=== PATIENT | female | born 1995 | race American Indian/Alaskan Native ===

== ENCOUNTER 2019-08-21 21:52 | Emergency (ER) | payer SELFPAY ==
[2019-08-21] MEDS ORDERED: FLUORESCEIN 1 MG STRIP OP ONE ×2 (22:41→22:49)
[2019-08-21] MEDS ORDERED: TETRACAINE 0.5% OPHTH SOLN 4ML OU STA (22:49)
--- NOTE | 2019-08-21 22:51 | Emergency Department Report ---
ED General Adult HPI - General Chief complaint: Eye Problems Stated complaint: LOST OF VISION, POSS EYE INFECTION Time Seen by Provider: 08/21/19 22:30 Source: patient, family, RN notes reviewed, old records reviewed Mode of arrival: Ambulatory Limitations: Other (patient very anxious. Patient initially states that she cannot see.) - History of Present Illness Initial comments: During the entire history and physical, I am community engagement specialist and escorted by nurse Michelle Mercado This is a 23-year-old male to female transgender patient, previously evaluated by myself in 2015, reports history of anxiety and Crohn's disease. Patient reports that she fell asleep with her contact lenses in her eyes, and has been having aching burning bilateral eye pain. She reports that about 1 hour prior to presentation, she was not able to see out of her bilateral eyes. Her pain was improved with fluorescein, and her vision returned while in the emergency room. She may no complaint of additional complaints. The patient indicates that she did not fall. -: Gradual Location: eyes Quality: aching Consistency: constant Improves with: medication - Related Data Home Medications Medication Instructions Recorded Confirmed Last Taken Mesalamine [Asacol] 500 mg PO DAILY 11/19/13 03/19/14 03/19/14 09:00 Previous Rx's Medication Instructions Recorded Last Taken Type Dicyclomine [Bentyl] 10 mg PO QID PRN #20 capsule 04/03/15 Unknown Rx Ondansetron [Zofran Odt] 4 mg PO Q6H PRN #20 tab.rapdis 04/03/15 Unknown Rx predniSONE [Deltasone] 40 mg PO QDAY 7 Days tab 04/03/15 Unknown Rx Mineral Oil/Petrolatum,White 1 applic OP Q1HR PRN #1 oint...g. 08/21/19 Unknown Rx [Refresh Lacri-Lube Ointment] oxyCODONE /ACETAMINOPHEN [Percocet 1 tab PO Q4HR PRN #10 tab 08/21/19 Unknown Rx 5/325] Allergies Allergy/AdvReac Type Severity Reaction Status Date / Time No Known Allergies Allergy Verified 04/03/15 15:16 ED Review of Systems ROS: Stated complaint: LOST OF VISION, POSS EYE INFECTION Other details as noted in HPI Eyes: eye pain, eye discharge, vision change Psychiatric: anxiety ED Past Medical Hx - Past Medical History Previous Medical History?: Yes Hx Psychiatric Treatment: Yes (ANXIETY) Hx HIV: Yes Additional medical history: crohnS - Surgical History Past Surgical History?: No - Social History Smoking Status: Former Smoker Substance Use Type: None - Medications Home Medications: Home Medications Medication Instructions Recorded Confirmed Last Taken Type Mesalamine [Asacol] 500 mg PO DAILY 11/19/13 03/19/14 03/19/14 09:00 History Dicyclomine [Bentyl] 10 mg PO QID PRN #20 capsule 04/03/15 Unknown Rx Ondansetron [Zofran Odt] 4 mg PO Q6H PRN #20 tab.rapdis 04/03/15 Unknown Rx predniSONE [Deltasone] 40 mg PO QDAY 7 Days tab 04/03/15 Unknown Rx Mineral Oil/Petrolatum,White 1 applic OP Q1HR PRN #1 oint...g. 08/21/19 Unknown Rx [Refresh Lacri-Lube Ointment] oxyCODONE /ACETAMINOPHEN [Percocet 1 tab PO Q4HR PRN #10 tab 08/21/19 Unknown Rx 5/325] ED Physical Exam - General Limitations: Other (the patient is very anxious. During the entire history and physical, I am community engagement specialist and escorted by nurse Michelle Mercado) General appearance: alert, anxious - Head Head exam: Present: atraumatic, normocephalic - Eye Eye exam: Present: normal appearance, PERRL, EOMI, other (visual acuity intact to finger counting, color perception, reading at a close distance. Extraocular movements are intact bilaterally. There is negative fluorescein uptake. There is negative Lorri sign.). Absent: nystagmus - ENT ENT exam: Present: normal exam, normal orophraynx, mucous membranes moist, normal external ear exam - Neck Neck exam: Present: normal inspection, full ROM. Absent: tenderness, meningismus - Respiratory Respiratory exam: Present: normal lung sounds bilaterally. Absent: respiratory distress - Cardiovascular Cardiovascular Exam: Present: regular rate, normal rhythm, normal heart sounds. Absent: bradycardia, tachycardia, irregular rhythm, systolic murmur, diastolic murmur, rubs, gallop - GI/Abdominal GI/Abdominal exam: Present: soft. Absent: distended, tenderness, guarding, rebound, rigid, pulsatile mass - Extremities Exam Extremities exam: Present: normal inspection, full ROM, other (2+ pulses in the bilateral upper extremities. There is no long bony tenderness. Muscular saravanan rtments are soft.). Absent: pedal edema, calf tenderness - Back Exam Back exam: Present: normal inspection. Absent: tenderness, CVA tenderness (R), CVA tenderness (L), paraspinal tenderness, vertebral tenderness - Neurological Exam Neurological exam: Present: alert, oriented X3, other (there is no facial droop. The tongue is midline. Extraocular movements are intact bilaterally. Patient speaking in full complete sentences. Shoulder shrug is intact bilaterally. Hearing is grossly intact bilaterally. Visual acuity intact to finger counting and color perception at a close distance. 5/5 strength 4 extremities. Sensation intact to light touch in 4 extremities.) - Psychiatric Psychiatric exam: Present: anxious - Skin Skin exam: Present: warm, dry, intact, normal color. Absent: rash ED Course Vital Signs 08/21/19 08/22/19 22:00 00:31 Temperature 98.0 F Pulse Rate 92 H 85 Respiratory 18 16 Rate Blood Pressure 122/79 Blood Pressure 118/68 [Left] O2 Sat by Pulse 100 99 Oximetry - Reevaluation(s) Reevaluation #1: 08/21/19 23:37 Differential diagnosis, including but not limited to: Corneal abrasion, retained contact lens, anxiety related visual loss Assessment and plan: 23-year-old female who complains of binocular visual loss in the context of wearing contact lenses, simultaneously quite anxious, on fluor escein examination has a negative Lorri sign, negative fluorescein uptake. Extraocular movements are intact. Pupils equally reactive to light bilaterally. After conservative measures, patient's visual acuity is intact to finger counting, color perception and reading at a close distance. I suspect that her endorse complaint of visual loss is likely secondary to her underlying anxiety. Patient is currently receiving extensive and copious irrigation through nasal cannula directed and bilateral eyes with sterile saline. Reevaluation #2: 08/21/19 23:43 The patient is reassessed. Visual acuity still remains intact to finger counting, perception and reading at a close distance. Her lids are everted, both superiorly and inferiorly, and we do not see any residual foreign bodies. Patient was strongly counseled to continue using artificial tears which we will prescribe her, and to not place contact lenses in her eyes. She'll need to closely follow up with an outpatient marine equipment test engineer. ED Medical Decision Making - Lab Data Vital Signs 08/21/19 22:00 Temperature 98.0 F Pulse Rate 92 H Respiratory 18 Rate Blood Pressure 122/79 O2 Sat by Pulse 100 Oximetry Critical care attestation.: If time is entered above; I have spent that time in minutes in the direct care of this critically ill patient, excluding procedure time. ED Disposition Clinical Impression: Red eye associated with contact lens Disposition: [id number] TO HOME OR SELFCARE Is pt being admited?: No Does the pt Need Aspirin: No Condition: Stable Additional Instructions: Patient should continue to wash out eyes with gentle water, as often as she needs. The patient should use artificial tears as often as as needed. Patient may take the Percocet as needed for pain. If taking Percocet, do not drive, making poor decisions, consume alcohol, or operate motor vehicles. The patient should not wear contact lenses until cleared to do so by an client engagement specialist. Recommend following up with an client engagement specialist within the next 24 hours. Patient may contact any of the listed eye specialists, or contact her own private insurance company to determine who is in network. Please return to the emergency room right away with new, worsened, different symptoms, or symptoms not present on the initial emergency room evaluation. Prescriptions: oxyCODONE /ACETAMINOPHEN [Percocet 5/325] 1 tab PO Q4HR PRN #10 tab PRN Reason: Pain , Severe (7-10) Mineral Oil/Petrolatum,White [Refresh Lacri-Lube Ointment] 1 applic OP Q1HR PRN #1 oint...g. PRN Reason: Pain , Severe (7-10) Referrals: CRISTINA LEMUS MD [Staff Physician] - 3-5 Days DINO TAYLOR MD [Staff Physician] - 3-5 Days KAMALA OCONNOR MD [Staff Physician] - 3-5 Days MAN LYN MD [Staff Physician] - 3-5 Days ADAM CASTILLO MD [Staff Physician] - 3-5 Days JUAN DIEGO HOWARD MD [Staff Physician] - 3-5 Days TRAMAINE EASTON MD [Staff Physician] - 3-5 Days
[2019-08-21] MEDS ORDERED: SODIUM CHLORIDE 0.9% 1000 ML 1,000 ML ONE ×2 (22:53→23:42)
[2019-08-21] MEDS ORDERED: oxyCODONE /ACETAMINOPHEN 5-325MG TAB PO ONE (23:19)
[2019-08-22 00:32] VITALS: BP 118/68
== END 2019-08-22 00:31 | disposition home or self-care (01) ==
LOC: ED 21:52
DX: H18.823 Corneal disorder due to contact lens, bilateral (principal); F41.9 Anxiety disorder, unspecified; K50.90 Crohn's disease, unspecified, without complications; Z21 Asymptomatic human immunodeficiency virus [HIV] infection status; Z87.891 Personal history of nicotine dependence; Z79.899 Other long term (current) drug therapy
CPT/HCPCS: 99284; J7030